=== PATIENT | male | born 1990 | race African-American/Black ===

== ENCOUNTER 2025-03-11 23:10 | Emergency (ER) | payer MEDICAID ==
[~2025-03-11] VITALS: Ht 190.5 cm; Wt 114.0 kg
[2025-03-11 23:37] VITALS: O2SAT 98
[2025-03-12] MEDS: HYDROCODONE/ACETAMINOPHEN 5/325MG TABLET PO ONE (00:27)
[2025-03-12] MEDS: IBUPROFEN 400MG TABLET PO ONE (00:27)
[2025-03-12] MEDS: BACITRACIN ZINC OINT UDPKT TOP ONE (00:28)
[2025-03-12] MEDS ORDERED: TOPUD PO (01:28)
[2025-03-12] MEDS ORDERED: IBUP-2028 MT (01:28)
[2025-03-12] MEDS ORDERED: METH-653 MT (01:28)
[2025-03-12] MEDS ORDERED: BO1 TP (01:33)
[2025-03-12] MEDS: BACITRACIN ZINC OINT UDPKT TOP STA (02:02)
[2025-03-12 02:37] VITALS: BP 131/80; PULSE 58; RESP 20; TEMP 37; O2SAT 98
== END 2025-03-12 02:46 | disposition home or self-care (01) ==
LOC: ER 23:10
DX: S92.402A Displaced unspecified fracture of left great toe, initial encounter for closed fracture (principal); S50.812A Abrasion of left forearm, initial encounter; S50.811A Abrasion of right forearm, initial encounter; Z87.891 Personal history of nicotine dependence; V89.2XXA Person injured in unspecified motor-vehicle accident, traffic, initial encounter; Y93.55 Activity, bike riding; Y92.89 Other specified places as the place of occurrence of the external cause; Y99.8 Other external cause status
CPT/HCPCS: 99284; 73562; 73610; 73630; A6449